=== PATIENT | male | born 1960 | race Caucasian/White ===

== ENCOUNTER → 2018-08-02 | Day surgery (SDC) | payer BC ==
[~2018-08-02] MED LIST: BUPIVACAINE 0.25% 30ML SDV INJ ONE; CRESTOR5 MG PO; DEXAMETHASONE SOD PHOS 10 MG/1 ML VIAL ONE; FENTANYL CITRATE/PF 100MCG/2 ML INJ ONE; IOPAMIDOL 200 MG/ML 20 ML VIAL IT ONE; LIDOCAINE HCL 1% 30ML-PF VIAL ONE; LIDOCAINE HCL 2% LOCAL INJ 5 ML SDV VIAL INJ ONE; MIDAZOLAM HCL 2 MG/2 ML VIAL ONE; NORCO 7.5-3251 EACH PO; PROPOFOL IV EMULSION 10 MG/ML 20 ML VIAL ONE; RAPAFLO8 MG PO
--- OUTSIDE RECORDS SUMMARY | 2018-08-02 05:34 | XMS REPORT | Clinical Summary ---
Author Author [facility] Address Unknown Phone Unavailable Care Team Providers Care Geometry Tutor Name Role Phone Solomon Andrade MD PCP Allergies No Known Allergies Medications End Date Status Medication Sig Dispensed Refills Start Date Active RAPAFLO 8 mg capsule 2 6 Active rosuvastatin (CRESTOR) 5 0 MG tablet 6 Active Problems Problem Noted Date Arthritis 04/17/2014 Family History Medical History Relation Name Comments Diabetes Father Jayden Geiger Relation Name Status Comments Father Jayden Geiger Social History Date Tobacco Use Types Packs/Day Years Used Never Smoker Alcohol Use Drinks/Week oz/Week Comments Yes 0 Cans of 1 or 2 drinks a month beer 0 Standard drinks or equivalent Sex Assigned at Date Recorded Not on file Industry Job Start Date Occupation Not on file Not on file Not on file Travel End Travel History Travel Start No recent travel history available. Last Filed Vital Signs Not on file Plan of Treatment Health Maintenance Due Date Last Done Comments COLON CANCER SCREENING 08/02/2011 SHINGLES VACCINES (#1) 08/02/2011 INFLUENZA VACCINE 11/15/2018 Results Not on fileafter 2017 Insurance Payer Benefit Subscriber ID Type Phone Address Plan / Group BCBS BCBS xxxxxxxxxxxx PPO CHOICE PPO/[employer] EMPL PPO Advance Directives Patient has advance care planning documents on file. For more information, berenice montero contact: [facility] [address] [place] [phone]
--- OUTSIDE RECORDS SUMMARY | 2018-08-02 05:34 | XMS REPORT ---
Author Author [facility] Address Unknown Phone Unavailable Care Team Providers Care Industrial Automation Engineer Name Role Phone DR MADELAINE MONTERROSO Unavailable Unavailable Problems This patient has no known problems. Allergies, Adverse Reactions, Alerts This patient has no known allergies or adverse reactions. Medications This patient has no known medications. Encounters Start Date/Time End Date/Time Encounter Type Admission Type Attending [facility] Facility Care Department Encounter ID 2018-07-30 05:00:00 Inpatient MADELAINE [facility] [id number]
[2018-08-02 07:47] VITALS: BP 112/87
== END | disposition home or self-care (01) ==
LOC: OR 05:31
PROVIDERS: ATTEND Physical Medicine & Rehabilitation Pain Medicine
DX: M54.16 Radiculopathy, lumbar region (principal); M46.1 Sacroiliitis, not elsewhere classified; G89.29 Other chronic pain; Z87.828 Personal history of other (healed) physical injury and trauma
CPT/HCPCS: 64483; 64484 ×2; J1100; J2001 ×2; J2250; J2704; Q9967; 77003